=== PATIENT | female | born 1970 | race African-American/Black ===

== ENCOUNTER 2018-10-01 11:49 | Emergency (ER) | payer SELFPAY ==
--- NOTE | 2018-10-01 12:17 | RAD ---
Chest AP view INDICATION: Altered mental status COMPARISON: None FINDINGS: Lungs:The lungs are clear Cardiac silhouette pulmonary vasculature:The cardiomediastinal silhouette appears within normal limit s. Pleural spaces:No pleural effusion or pneumothorax is demonstrated. Upper abdomen:No abnormality seen. Osseous structures: No acute osseous abnormality. Additional findings:None. IMPRESSION: No acute cardiopulmonary abnormality.
[2018-10-01 12:23] LABS: #Basophils 0.1 thou/uL (0.0-0.2); #Eosinphils 0.1 thou/uL (0.0-0.7); #Monocytes 0.5 thou/uL (0.11-0.59); #Neutrophils 5.6 thou/uL (1.40-6.50); %Basophils 0.7 % (0.0-1.0); %Eosinophils 1.5 % (0.0-10.0); %Lymphocytes 13.9 % (21.0-51.0); %Monocytes 7.4 % (0.0-10.0); %Neutrophils 76.5 % (42.0-75.0); Hemoglobin 8.4 g/dL (12.0-16.0); Mean Corpuscular HGB CONC 31.3 g/dL (32.0-36.0); Mean Corpuscular Hemoglobin 26.7 pg (27.0-31.0); Mean Corpuscular Volume 85.2 fL (78.0-98.0); Mean Platelet Volume 10.6 fL (7.4-10.4); Platelet Count 194 thou/uL (130-400); RBC Distribution Width 12.9 % (11.5-14.5); Red Blood Cell (RBC) Count 3.16 mill/uL (4.20-5.40); White Blood Cell (WBC) Count 7.3 thou/uL (4.8-10.8)
[2018-10-01 12:39] LABS: INR-International Normal Ratio 1.1; Prothrombin Time 14.1 SEC (12.0-14.7)
[2018-10-01 12:44] LABS: ALT (SGPT) 8 U/L (8-55); AST (SGOT) 16 U/L (5-34); Albumin 3.5 g/dL (3.5-5.0); Alkaline Phosphatase 59 U/L (40-150); Anion Gap 13 mmol/L (10-20); BUN (Urea Nitrogen) 9 mg/dL (7.0-18.7); Bilirubin, Total 0.2 mg/dL (0.2-1.2); CK (CPK) 49 U/L (29-168); Calc. Creatinine Clearance 0 mL/min (70-130); Calcium 8.5 mg/dL (7.8-10.44); Carbon Dioxide 25 mmol/L (22-29); Chloride 104 mmol/L (98-107); Estimated GFR-MDRD 85; Globulin 2.5 g/dL (2.4-3.5); Glucose 120 mg/dL (70-105); Potassium 3.7 mmol/L (3.5-5.1); Sodium 138 mmol/L (136-145)
[2018-10-01 12:46] LABS: Clarity Turbid (Clear)
[2018-10-01 12:55] LABS: Pregnancy Test - Urine (BHCG) Indeterminate (Negative)
[2018-10-01 12:58] LABS: Bilirubin Unable to Interpret (Negative); Glucose, Urine (Dipstick) Unable to Interpret mg/dL (Negative); Protein, Urine (Dipstick) Unable to Interpret mg/dL (Neg-Trace); Urobilinogen UNABLE TO INTERPRET mg/dL (Less than 2)
[2018-10-01 12:59] LABS: Blood, Urine Large (Negative)
[2018-10-01 13:00] LABS: Leukocyte Unable to Interpret Leu/uL (Negative); Nitrite Unable to Interpret (Negative)
[2018-10-01 13:03] LABS: Bacteria/HPF Rare-Few HPF (None Seen); RBC/HPF Greater than 50 HPF (0-3); Squamous Epithelial 0-3 HPF (0-3); WBC/HPF 0-3 HPF (0-3)
[2018-10-01 13:03] LABS: CKMB 0.9 ng/mL (0-6.6)
== END 2018-10-01 14:09 | disposition short-term general hospital (02) ==
LOC: MADERS 11:49
DX: N92.0 Excessive and frequent menstruation with regular cycle (principal); D64.9 Anemia, unspecified; I10 Essential (primary) hypertension; J45.909 Unspecified asthma, uncomplicated
CPT/HCPCS: 36415; 71045; 80053; 81003; 81015; 81025; 82550; 82553; 83880; 84484; 85025; 85610; 85730; 86850; 86900; 86901; 93005; 96360

== ENCOUNTER 2019-01-18 23:20 | Emergency (ER) | payer SELFPAY ==
[2019-01-19 00:09] LABS: Hemoglobin 11.1 g/dL (12.0-16.0); Mean Corpuscular HGB CONC 30.2 g/dL (32.0-36.0); Mean Corpuscular Volume 89.4 fL (78.0-98.0); Mean Platelet Volume 10.6 fL (7.4-10.4); Platelet Count 239 thou/uL (130-400); RBC Distribution Width 15.5 % (11.5-14.5); Red Blood Cell (RBC) Count 4.11 mill/uL (4.20-5.40); White Blood Cell (WBC) Count 6.9 thou/uL (4.8-10.8)
[2019-01-19 00:20] LABS: Anion Gap 18 mmol/L (10-20); BUN (Urea Nitrogen) 11 mg/dL (7.0-18.7); Calc. Creatinine Clearance 0 mL/min (70-130); Calcium 8.9 mg/dL (7.8-10.44); Carbon Dioxide 20 mmol/L (22-29); Chloride 105 mmol/L (98-107); Estimated GFR-MDRD 74; Glucose 89 mg/dL (70-105); Sodium 138 mmol/L (136-145)
[2019-01-19 00:25] LABS: Potassium 4.6 mmol/L (3.5-5.1)
[2019-01-19 01:14] LABS: Band 1 % (5-11); Eosinophils 3 % (0-10); Lymphocytes 25 % (21-51); MDiff Complete? YES; Monocytes 7 % (0-10); Neutrophil 64 % (42-75); Platelet Morphology Comment Appears Adequate; RBC Morphology Normal
== END 2019-01-19 00:38 | disposition home or self-care (01) ==
LOC: MADERS 23:20
DX: N93.8 Other specified abnormal uterine and vaginal bleeding (principal); E78.5 Hyperlipidemia, unspecified; E78.00 Pure hypercholesterolemia, unspecified; I10 Essential (primary) hypertension; J45.909 Unspecified asthma, uncomplicated; D64.9 Anemia, unspecified
CPT/HCPCS: 80048; 85025; 99283

== ENCOUNTER 2019-03-03 07:32 | Emergency (ER) | payer SELFPAY ==
[2019-03-03] MEDS ORDERED: cefTRIAXone\\ROCEPHIN 2 GM VIAL ONE (08:01)
[2019-03-03] MEDS ORDERED: methylPREDNISolone Sod Succ/PF 125 MG/2 ML VIAL ONE (08:01)
[2019-03-03] MEDS ORDERED: Ondansetron PF 4 MG/2 ML Vial ONE (08:01)
[2019-03-03] MEDS ORDERED: Sodium Chloride 0.9% 100 ML ONE (08:01)
[2019-03-03 08:34] LABS: #Basophils 0.1 thou/uL (0.0-0.2); #Eosinphils 0.2 thou/uL (0.0-0.7); #Lymphocytes 1.3 thou/uL (1.20-3.40); #Monocytes 0.6 thou/uL (0.11-0.59); #Neutrophils 5.8 thou/uL (1.40-6.50); %Basophils 1.2 % (0.0-1.0); %Eosinophils 2.1 % (0.0-10.0); %Lymphocytes 16.1 % (21.0-51.0); %Monocytes 7.6 % (0.0-10.0); Hemoglobin 10.7 g/dL (12.0-16.0); Mean Corpuscular HGB CONC 29.9 g/dL (32.0-36.0); Mean Corpuscular Hemoglobin 26.1 pg (27.0-31.0); Mean Corpuscular Volume 87.1 fL (78.0-98.0); Mean Platelet Volume 9.2 fL (7.4-10.4); Platelet Count 374 thou/uL (130-400); RBC Distribution Width 12.7 % (11.5-14.5); Red Blood Cell (RBC) Count 4.09 mill/uL (4.20-5.40)
[2019-03-03 08:52] LABS: ALT (SGPT) 8 U/L (8-55); AST (SGOT) 15 U/L (5-34); Albumin 3.7 g/dL (3.5-5.0); Alkaline Phosphatase 42 U/L (40-110); Anion Gap 12 mmol/L (10-20); BUN (Urea Nitrogen) 12 mg/dL (7.0-18.7); Bilirubin, Total 0.4 mg/dL (0.2-1.2); Calc. Creatinine Clearance 0 mL/min (70-130); Calcium 8.9 mg/dL (7.8-10.44); Carbon Dioxide 23 mmol/L (22-29); Chloride 108 mmol/L (98-107); Estimated GFR-MDRD 75; Globulin 2.8 g/dL (2.4-3.5); Glucose 90 mg/dL (70-105); Potassium 3.7 mmol/L (3.5-5.1); Protein, Total 6.5 g/dL (6.0-8.3); Sodium 139 mmol/L (136-145)
[2019-03-03] MEDS ORDERED: diphenhydrAMINE 50 MG/ML VIAL ONE (09:06)
--- NOTE | 2019-03-03 10:18 | RAD ---
Exam: 2 views soft tissue neck HISTORY: Allergic reaction COMPARISON: None FINDINGS: Multilevel degenerative changes of the cervical spine. Straightening of normal cervical karime dosis may be positional. There is mild prevertebral soft tissue swelling. There does appear to be fullness of the epiglottis. There is mild narrowing of the airway below the l evel of the epiglottis. There is fullness of the vallecula. IMPRESSION: Soft tissue swelling, presumed to be due to allergic reaction. Consider administration of medicine to counteract allergic reaction. Narrowing of the subglottic airway.
[2019-03-03] MEDS ORDERED: EPINEPHrine 1 MG/ML AMP ONE (10:30)
== END 2019-03-03 11:17 | disposition home or self-care (01) ==
LOC: MADERS 07:32
DX: T78.40XA Allergy, unspecified, initial encounter (principal); E78.5 Hyperlipidemia, unspecified; E78.00 Pure hypercholesterolemia, unspecified; I10 Essential (primary) hypertension; J45.909 Unspecified asthma, uncomplicated; D64.9 Anemia, unspecified; Z79.899 Other long term (current) drug therapy; Z79.51 Long term (current) use of inhaled steroids
CPT/HCPCS: 70360; 80053; 85025; 86140; 87081; 87430; 96365; 96372; 96375; J0171; J0696; J1200; J2405; J2930; J3490

== ENCOUNTER 2020-06-29 11:05 | Emergency (ER) | payer SELFPAY | END 2020-06-29 11:55 | disposition home or self-care (01) | LOC: MADERS 11:05 | DX: J00 Acute nasopharyngitis [common cold] (principal); E78.5 Hyperlipidemia, unspecified; E78.00 Pure hypercholesterolemia, unspecified; I10 Essential (primary) hypertension; J45.909 Unspecified asthma, uncomplicated; D64.9 Anemia, unspecified; Z79.899 Other long term (current) drug therapy | CPT/HCPCS: 99283 ==

== ENCOUNTER 2022-01-17 12:05 | Emergency (ER) | payer SELFPAY ==
[2022-01-17] MEDS ORDERED: Hydrochlorothiazide 25 MG TAB ONE (13:59)
[2022-01-17] MEDS ORDERED: Losartan 25 MG TAB ONE (13:59)
== END 2022-01-17 14:40 | disposition home or self-care (01) ==
LOC: MADERS 12:05
DX: I10 Essential (primary) hypertension (principal); E78.00 Pure hypercholesterolemia, unspecified
CPT/HCPCS: 99283

== ENCOUNTER 2022-06-25 23:40 | Emergency (ER) | payer SELFPAY ==
[2022-06-26 00:10] LABS: #Basophils 0.1 thou/uL (0.0-0.2); #Eosinphils 0.4 thou/uL (0.0-0.7); #Lymphocytes 2.1 thou/uL (1.20-3.40); #Monocytes 0.6 thou/uL (0.11-0.59); #Neutrophils 4.6 thou/uL (1.40-6.50); %Basophils 1.4 % (0.0-1.0); %Eosinophils 5.2 % (0.0-10.0); %Lymphocytes 27.3 % (21.0-51.0); %Monocytes 7.7 % (0.0-10.0); %Neutrophils 58.4 % (42.0-75.0); Hemoglobin 12.2 g/dL (12.0-16.0); Mean Corpuscular HGB CONC 32.5 g/dL (32.0-36.0); Mean Corpuscular Hemoglobin 28.7 pg (27.0-31.0); Mean Corpuscular Volume 88.1 fl (78.0-98.0); Mean Platelet Volume 13.3 fL (7.4-10.4); Platelet Count 249 10x3/uL (130-400); RBC Distribution Width 13.1 % (11.5-14.5); Red Blood Cell (RBC) Count 4.24 mill/uL (4.20-5.40); White Blood Cell (WBC) Count 7.8 10x3/uL (4.8-10.8)
[2022-06-26 00:28] LABS: ALT (SGPT) 11 U/L (8-55); AST (SGOT) 20 U/L (5-34); Albumin 3.3 g/dL (3.5-5.0); Alkaline Phosphatase 85 U/L (40-110); Anion Gap 11 mmol/L (10-20); BUN (Urea Nitrogen) 12 mg/dL (9.8-20.1); Bilirubin, Total 0.3 mg/dL (0.2-1.2); Calc. Creatinine Clearance 0 mL/min (70-130); Calcium 7.4 mg/dL (7.8-10.44); Carbon Dioxide 20 mmol/L (22-29); Chloride 112 mmol/L (98-107); Estimated GFR 94; Glucose 87 mg/dL (70-105); Protein, Total 5.3 g/dL (6.0-8.3); Sodium 141 mmol/L (136-145)
[2022-06-26 00:36] LABS: Potassium 2.4 mmol/L (3.5-5.1)
[2022-06-26] MEDS ORDERED: Potassium Chloride 20 MEQ TAB ONE (00:43)
[2022-06-26] MEDS ORDERED: NS 0.9% w/ 40 MEQ KCL 1,000 ML IV ONE (00:43)
[2022-06-26] MEDS ORDERED: Sodium Chloride 0.9% 1,000 ML ONE (00:43)
[2022-06-26] MEDS ORDERED: Magnesium 2 GM/50 ML BAG (IN WATER) ONE (00:44)
[2022-06-26] MEDS ORDERED: Meclizine HCl 25 MG TAB ONE (00:44)
[2022-06-26 01:04] LABS: Magnesium 1.4 mg/dL (1.6-2.6)
[2022-06-26] MEDS ORDERED: Calcium Gluc 4.6 MEQ/10 ML (100 MG/ML) ONE (01:05)
[2022-06-26] MEDS ORDERED: Sodium Chloride 0.9% 100 ML ONE (01:07)
[2022-06-26 08:53] LABS: Anion Gap 14 mmol/L (10-20)
[2022-06-26 09:30] LABS: Potassium 4.1 mmol/L (3.5-5.1)
[2022-06-26 09:35] LABS: BUN (Urea Nitrogen) 11 mg/dL (9.8-20.1); Calc. Creatinine Clearance 0 mL/min (70-130); Calcium 9.7 mg/dL (7.8-10.44); Carbon Dioxide 21 mmol/L (22-29); Chloride 112 mmol/L (98-107); Estimated GFR 80; Glucose 111 mg/dL (70-105); Magnesium 1.8 mg/dL (1.6-2.6); Sodium 143 mmol/L (136-145)
== END 2022-06-26 10:10 | disposition home or self-care (01) ==
LOC: MADERS 23:40
DX: E87.6 Hypokalemia (principal); R94.6 Abnormal results of thyroid function studies; E83.51 Hypocalcemia; E83.42 Hypomagnesemia; R42 Dizziness and giddiness; E78.00 Pure hypercholesterolemia, unspecified; I10 Essential (primary) hypertension; Z79.899 Other long term (current) drug therapy
CPT/HCPCS: 70450; 80048; 80053; 83690; 83735; 84439; 84443; 85025; 93005; 96365; 96366; 96367; 96368; J0612; J3475; J3480; J7050

== ENCOUNTER 2023-03-06 21:55 | Emergency (ER) | payer SELFPAY ==
[2023-03-06 23:11] LABS: SARS-CoV-2 NAA Rapid Test DETECTED (NotDetected)
== END 2023-03-07 | disposition home or self-care (01) ==
LOC: MADERS 21:55
DX: U07.1 COVID-19 (principal); I10 Essential (primary) hypertension; Z79.899 Other long term (current) drug therapy
CPT/HCPCS: 71045

== ENCOUNTER 2024-01-05 10:03 | Emergency (ER) | payer SELFPAY ==
[2024-01-05] MEDS ORDERED: Dexamethasone 10 MG/ML VIAL ONE (11:13)
== END 2024-01-05 11:30 | disposition home or self-care (01) ==
LOC: MADERS 10:03
DX: J06.9 Acute upper respiratory infection, unspecified (principal); I10 Essential (primary) hypertension
CPT/HCPCS: 71046; 87081; 87400; 87426; 87430; 96372; J1100

== ENCOUNTER 2024-10-22 21:59 | Emergency (ER) | payer OTHER ==
[2024-10-22] MEDS ORDERED: Acetaminophen 500 MG TAB ONE (23:16)
== END 2024-10-22 23:29 | disposition home or self-care (01) ==
LOC: MADERS 21:59
DX: M25.561 Pain in right knee (principal); I10 Essential (primary) hypertension; E78.5 Hyperlipidemia, unspecified; J45.909 Unspecified asthma, uncomplicated; Z79.899 Other long term (current) drug therapy
CPT/HCPCS: 99283

== ENCOUNTER 2025-01-24 11:06 | Emergency (ER) | payer OTHER ==
[2025-01-24] MEDS ORDERED: Amoxicillin/Potassium Clav 875 MG TAB ONE (11:23)
[2025-01-24] MEDS ORDERED: Ibuprofen 800 MG TAB ONE (11:23)
== END 2025-01-24 12:09 | disposition home or self-care (01) ==
LOC: MADERS 11:06
DX: K04.7 Periapical abscess without sinus (principal); K08.89 Other specified disorders of teeth and supporting structures; I10 Essential (primary) hypertension; J45.909 Unspecified asthma, uncomplicated
CPT/HCPCS: 41800; 99282; J0665